=== PATIENT | male | born 1935 | race Caucasian/White ===

== ENCOUNTER 2016-12-22 23:03 | Emergency (ER) | payer MEDICARE, BC ==
[~2016-12-22 23:03] MED LIST: AMLODIPINE-ATO1 EACH PO; ASPIRIN PO; ASPIRIN81 M2 PO; AVANDIA; CADUET 5 MG-101 EACH PO; CARDURA PO; DARVOCET-N 1001 TAB PO; GLUCOPHAGE500 M1 PO; LIPITOR; LORTAB 7.5-5001 TAB PO; MULTI-VITAMIN1 TAB; NEURONTIN PO; NORCO1 TAB 10/3 PO; NORVASC; VASOTEC; VASOTEC20 MG PO; VIT E PO; VITAMIN C PO
== END 2016-12-23 00:30 | disposition home or self-care (01) ==
LOC: SED 23:03
DX: S27.818A Other injury of esophagus (thoracic part), initial encounter (principal); E11.9 Type 2 diabetes mellitus without complications; I10 Essential (primary) hypertension; J44.9 Chronic obstructive pulmonary disease, unspecified; F17.200 Nicotine dependence, unspecified, uncomplicated; Z79.82 Long term (current) use of aspirin; Z79.84 Long term (current) use of oral hypoglycemic drugs; Z79.899 Other long term (current) drug therapy; X58.XXXA Exposure to other specified factors, initial encounter; Y92.9 Unspecified place or not applicable
CPT/HCPCS: 99283

== ENCOUNTER 2017-02-19 06:02 | Emergency (ER) | payer MEDICARE, BC ==
[~2017-02-19] VITALS: Ht 182.9 cm; Wt 58.0 kg
--- NOTE | ~2017-02-19 | CR63 ---
[facility]. [facility] A Service of [facility] & [facility] RADIOLOGY TEXT RESULTS PATIENT: ODALYS LEE LOCATION: SED : 33 UNIT #: [id number] AGE: [address]: Willy Pete MD SEX: M ORDER DR: [id number] [place] [id number] E MR#: [id number] Acc #: [id number] NAME: ODALYS LEE : 1935 SEX: M STUDY DATE/TIME: 02/19/2017 7:23 UNIT: SED ROOM: STUDY DESCRIPTION: CR Chest 2 View Attending Physician: Willy Pete M.D. Ordering Physician: Willy Pete M.D. Primary Care Physician: Blanco Palacio M.D. MEDICAL IMAGING REPORT This report is preliminary unless electronic signature is present. EXAM Chest, PA and lateral, 02/19/2017. HISTORY Right-side chest pain and upper arm pain for 2 days. No known injury. Benign essential hypertension. Coronary artery disease and prior angioplasty. FINDINGS The heart is normal in size. The lungs are hyperinflated with emphysematous and fibrotic changes characteristic of COPD. No airspace consolidation is seen. There are no pleural effusions. Thoracolumbar scoliosis is noted. IMPRESSION COPD. No active pulmonary disease. Dictated by... David Hayden M.D. THIS IS AN ELECTRONICALLY VERIFIED REPORT David Hayden M.D. at 02/20/2017 6:31 AM SINDI/liliya TD: 02/19/2017 21:52 JOB #: [id number] MEDICAL IMAGING REPORT Page 1 of 1
--- NOTE | ~2017-02-19 | CR94 ---
[facility]. [facility] A Service of [facility] & [facility] RADIOLOGY TEXT RESULTS PATIENT: ODALYS LEE LOCATION: SED : 34 UNIT #: [id number] AGE: [address]: Willy Pete MD SEX: M ORDER DR: [id number] [place] [id number] E MR#: [id number] Acc #: [id number] NAME: ODALYS LEE : 1935 SEX: M STUDY DATE/TIME: 02/19/2017 7:23 UNIT: SED ROOM: STUDY DESCRIPTION: CR Elbow Min 3 Views Rt Attending Physician: Willy Pete M.D. Ordering Physician: Willy Pete M.D. Primary Care Physician: Blanco Palacio M.D. MEDICAL IMAGING REPORT This report is preliminary unless electronic signature is present. EXAM Right elbow 3 views, 02/19/2017 HISTORY Right elbow pain for 2 days with no known injury. FINDINGS AP and lateral examination of the elbow shows satisfactory articulation of the humerus with the proximal radius and ulna. There is no identifiable fracture, dislocation, joint effusion, or radiopaque foreign body in the soft tissues. IMPRESSION Normal elbow. Dictated by... David Hayden M.D. THIS IS AN ELECTRONICALLY VERIFIED REPORT David Hayden M.D. at 02/20/2017 6:32 AM SINDI/gregory TD: 02/19/2017 21:55 JOB #: [id number] MEDICAL IMAGING REPORT Page 1 of 1
--- NOTE | ~2017-02-19 | EKG ---
PATIENT: ODALYS LEE UNIT #: [id number] Ventricular Rate: 76 BPM Atrial Rate: 76 BPM P-R Interval: 176 ms QRS Duration: 98 ms Q-T Interval: 404 ms QTC Calculation(Bezet): 454 ms P [place]: 76 degrees Calculated R [place]: 78 degrees Calculated T [place]: 81 degrees Diagnosis Line: Sinus rhythm with occasional Premature ventricular Diagnosis Line: complexes Diagnosis Line: Anteroseptal infarct , age undetermined Diagnosis Line: Abnormal ECG Diagnosis Line: No previous ECGs available Diagnosis Line: Confirmed by BINH CORBETT MD ([id number]) on Diagnosis Line: 02/25/2017 10:37:03 AM INTERPRETING MD: CHELLE JAQUEZ
[2017-02-19 07:07] LABS: EOSINOPHIL# 0.1 X10e3 (0-0.7); EOSINOPHIL% 3.5 % (0.0-7.0); HEMOGLOBIN 14.1 gm/dL (13.0-16.0); LYMPHOCYTE# 0.9 X10e3 (1.0-3.5); LYMPHOCYTE% 23.3 % (17.0-45.0); MEAN CELL VOLUME 98.7 FL (83-96); MEAN CORPUSCULAR HGB CONC 34.4 g/dL (30-36); MEAN PLATELET VOLUME 7.6 FL (6.5-11.5); MONOCYTE# 0.4 X10e3 (0-1.0); MONOCYTE% 9.5 % (3.0-12.0); NEUTROPHIL# 2.3 X10e3 (1.5-7.1); NEUTROPHIL% 62.7 % (40-75); PLATELET COUNT 235 X10e3 (140-420); RED BLOOD COUNT 4.15 X10e (3.90-5.60); RED CELL DISTRIBUTION WIDTH 15.5 % (11.0-15.5); WHITE BLOOD COUNT 3.7 X10e3 (4.0-10.5)
[2017-02-19 07:10] LABS: POC - CKMB 5.9 ng/mL (0.0-7.9)
[2017-02-19 07:11] LABS: POC - TROPONIN <0.05 ng/mL (<=0.05)
[2017-02-19 07:20] LABS: DIFF IND NO
[2017-02-19 07:32] LABS: BUN/CREATININE RATIO 18.88; CREATININE SERUM 0.9 mg/dL (0.6-1.4); GLOM FILT RATE Estimated 79.3 mL/min (>60); POTASSIUM 4.1 mmol/L (3.5-5.1)
== END 2017-02-19 08:48 | disposition home or self-care (01) ==
LOC: SED 06:02
PROVIDERS: Emergency Medicine
DX: M79.601 Pain in right arm (principal); I10 Essential (primary) hypertension; F17.200 Nicotine dependence, unspecified, uncomplicated; Z79.82 Long term (current) use of aspirin; Z79.84 Long term (current) use of oral hypoglycemic drugs; Z79.899 Other long term (current) drug therapy
CPT/HCPCS: 36415; 71020; 73080; 80048; 82553; 83874; 84484; 85025; 93005; 99284